=== PATIENT | female | born 1985 | race Caucasian/White ===

== ENCOUNTER 2016-07-16 08:37 | Emergency (ER) | payer BC, MEDICAID ==
[~2016-07-16 08:37] MED LIST: ACETAMINOPHEN PO; AMOXICILLIN500 M1 PO; CIPRO PO; DOXYCYCLINE PO; FLAGYL PO; FLAGYL250 MG PO; IBUPROFEN800 MG PO; LORTAB 5/500 TA1 TA1 PO; METROGEL60 GM TP; NAPROSYN500 MG PO; PEN-VEE K PO; PERCOCET5/325 PO; PHENERGAN25 MG PO; PRENATAL MULITV1 TAB PO; PRENATAL1 TA1 PO; ULTRAM PO; VIBRAMYCIN100 M1 PO; VICODIN 5/500 T1 TAB PO; VICODIN PO; VOLTAREN75 MG PO
== END 2016-07-16 09:08 | disposition home or self-care (01) ==
LOC: CED 08:37
DX: L03.313 Cellulitis of chest wall (principal); M79.5 Residual foreign body in soft tissue; F41.9 Anxiety disorder, unspecified; Z98.51 Tubal ligation status
CPT/HCPCS: 99282

== ENCOUNTER 2016-10-08 11:26 | Emergency (ER) | payer BC, MEDICAID ==
[~2016-10-08] VITALS: Ht 157.5 cm; Wt 61.2 kg
[2016-10-08 12:00] LABS: URINE SOURCE CLEAN CATCH
[2016-10-08 12:09] LABS: URINE APPEARANCE CLOUDY; URINE BILIRUBIN NEG (NEG); URINE BLOOD NEG (NEG); URINE COLOR YELLOW; URINE GLUCOSE NEG (NEG); URINE KETONE NEG (NEG); URINE LEUKOCYTE ESTERASE TRACE (NEG); URINE NITRATE NEG (NEG); URINE PH 6.5 (5-8); URINE PROTEIN NEG (NEG); URINE SPECIFIC GRAVITY 1.022 (1.003-1.035)
[2016-10-08 12:13] LABS: CULTURE INDICATED? YES; URBCS1 AUWI 0-2 /[HPF] (0-2); URINE BACTERIA AUWI 1+ (NEGATIVE); URINE SQUAMOUS EPITHELIAL CELL FEW /[HPF]
== END 2016-10-08 12:50 | disposition home or self-care (01) ==
LOC: CFTX 11:26 → CED 11:26 → CFTX 11:57
PROVIDERS: Physician Assistant
DX: N30.00 Acute cystitis without hematuria (principal); F41.9 Anxiety disorder, unspecified; Z90.49 Acquired absence of other specified parts of digestive tract
CPT/HCPCS: 81003; 84703; 87086; 87088; 87186; 96372; 99284; J0696